=== PATIENT | female | born 1985 | race African-American/Black ===

== ENCOUNTER 2021-05-31 08:00 | Inpatient (IN) | payer OTHER ==
[2021-05-31] MEDS ORDERED: CITRIC ACID/SODIUM CITRATE 30 ML UNIT-DOSE CUP PO ONE (09:18)
[2021-05-31] MEDS ORDERED: ELECTROLYTE-148 SOLN 1,000 ML IV SCH (09:30)
[2021-05-31 09:41] VITALS: BMI 29.2
[2021-05-31] MEDS ORDERED: ONDANSETRON 4 MG/2 ML VIAL ONE (10:03)
[2021-05-31] MEDS ORDERED: OXYTOCIN 10 UNITS/ML VIAL ONE ×3 (10:05→11:26)
[2021-05-31] MEDS ORDERED: morphine SULFATE (PF) 1 MG/2 ML SYRINGE ONE (10:06)
[2021-05-31] MEDS ORDERED: ceFAZolin SODIUM 1 GM VIAL ONE (10:06)
[2021-05-31] MEDS ORDERED: PHENYLEPHRINE HCL 10 MG/1 ML SINGLE DOSE VIAL ONE (10:07)
[2021-05-31] MEDS ORDERED: METHYLERGONOVINE MALEATE 0.2 MG/1 ML AMP IM PRN (10:24)
[2021-05-31] MEDS ORDERED: OXYTOCIN 20 UNITS in 0.9% NS 20 UNIT/1,000 ML INFUS.BAG IV SCH (10:30)
[2021-05-31] MEDS ORDERED: TRANEXAMIC ACID 1000 MG/10 ML VIAL ONE (10:33)
[2021-05-31 11:42] LABS: CORD BASE EXCESS -4.1 mmol/L (0-2); CORD HCO3 23.3 mmHg (20-29); CORD PCO2 51.3 mmHg (30-78); CORD pH 7.276 (7.14-7.44)
[2021-05-31 11:52] LABS: CORD pH 7.316 (7.14-7.44)
[2021-05-31 11:55] LABS: CORD BASE EXCESS -4.3 mmol/L (0-2); CORD HCO3 21.4 mmHg (20-29); CORD PCO2 41.6 mmHg (30-78); CORD pH 7.33 (7.14-7.44)
[2021-05-31] MEDS ORDERED: ONDANSETRON 4 MG/2 ML VIAL IVPUSH PRN (12:25)
[2021-05-31] MEDS ORDERED: morphine SULFATE/PF 1 MG/2 ML (2cc Syringe - QUVA) EP ONE (12:26)
[2021-05-31] MEDS ORDERED: LACTATED RINGERS SOLUTION 1,000 ML IV SCH (12:30)
[2021-05-31] MEDS ORDERED: OXYTOCIN 20 UNITS in 0.9% NS 20 UNIT/1,000 ML INFUS.BAG IV ONE (14:10)
[2021-05-31] MEDS: LABETALOL HCL 200 MG TABLET (FP) PO SCH (22:20)
[2021-05-31] MEDS ORDERED: oxyCODONE HCL 5 MG TABLET PO PRN ×2 (22:24)
[2021-06-01] MEDS: ACETAMINOPHEN 325 MG TABLET (FP) PO PRN ×2 (05:50→21:03)
[2021-06-01 08:57] LABS: BASO % 0.2 % (0-2.0); EOS % 0.5 % (0-4.5); HEMATOCRIT 29.8 % (32.4-45.2); HEMOGLOBIN 10.1 GM/dL (10.7-15.3); LYMPH % 14.3 % (8-40); MCH 29.7 pg (25.7-33.7); MEAN CELL VOLUME 87.6 fl (80-96); MEAN PLT VOLUME 8.7 fl (7.5-11.1); PLATELET COUNT 187 10^3/uL (134-434); RDW 14.4 % (11.6-15.6); WHITE BLOOD COUNT 11.3 K/mm3 (4.0-10.0)
[2021-06-01] MEDS: ENOXAPARIN NA (PORCINE) 40 MG/0.4 ML DISP.SYRIN SQ SCH (09:19)
[2021-06-01] MEDS: LABETALOL HCL 200 MG TABLET (FP) PO SCH ×2 (09:19→21:03)
[2021-06-01] MEDS ORDERED: BISACODYL 10 MG SUPP.RECT RC PRN (10:24)
[2021-06-01] MEDS: SIMETHICONE 80 MG TAB.CHEW (FP) PO PRN ×2 (14:04→21:02)
[2021-06-01] MEDS: IBUPROFEN 600 MG TABLET (FP) PO PRN (21:03)
[2021-06-02] MEDS: LABETALOL HCL 200 MG TABLET (FP) PO SCH ×2 (10:59→21:47)
[2021-06-02] MEDS: ENOXAPARIN NA (PORCINE) 40 MG/0.4 ML DISP.SYRIN SQ SCH (10:59)
[2021-06-02] MEDS: IBUPROFEN 600 MG TABLET (FP) PO PRN (13:15)
[2021-06-02] MEDS: SIMETHICONE 80 MG TAB.CHEW (FP) PO PRN (13:15)
[2021-06-03 07:13] LABS: BASO % 0.4 % (0-2.0); EOS % 0.7 % (0-4.5); HEMATOCRIT 29.8 % (32.4-45.2); LYMPH % 12.3 % (8-40); MCH 29.5 pg (25.7-33.7); MCHC 33.6 g/dl (32.0-36.0); MEAN CELL VOLUME 87.9 fl (80-96); MEAN PLT VOLUME 8.1 fl (7.5-11.1); MONO % 6.6 % (3.8-10.2); PLATELET COUNT 237 10^3/uL (134-434); RBC 3.39 M/mm3 (3.60-5.2); RDW 14.3 % (11.6-15.6); WHITE BLOOD COUNT 11.1 K/mm3 (4.0-10.0)
[2021-06-03 08:47] LABS: ANISOCYTOSIS 0; HELMET CELLS 0; HOWELL-JOLLY BODIES 0; MACROCYTOSIS 0; OVALOCYTE 0; PLATELET ESTIMATE NORMAL; ROULEAU 0; SICKELED CELLS 0; TARGET CELLS 0; TEAR DROP CELLS 0; TOXIC GRANULATION 0
[2021-06-03] MEDS: LABETALOL HCL 200 MG TABLET (FP) PO SCH ×2 (09:36→21:41)
[2021-06-03] MEDS: ENOXAPARIN NA (PORCINE) 40 MG/0.4 ML DISP.SYRIN SQ SCH (09:36)
[2021-06-03] MEDS: IBUPROFEN 600 MG TABLET (FP) PO PRN (11:47)
[2021-06-03] MEDS: SIMETHICONE 80 MG TAB.CHEW (FP) PO PRN (11:48)
[2021-06-04] MEDS: ENOXAPARIN NA (PORCINE) 40 MG/0.4 ML DISP.SYRIN SQ SCH (09:19)
[2021-06-04] MEDS: LABETALOL HCL 200 MG TABLET (FP) PO SCH (09:19)
[2021-06-04] MEDS: SIMETHICONE 80 MG TAB.CHEW (FP) PO PRN (09:30)
[2021-06-04] MEDS: IBUPROFEN 600 MG TABLET (FP) PO PRN (12:47)
[2021-06-04] MEDS: ACETAMINOPHEN 325 MG TABLET (FP) PO PRN (12:48)
[2021-06-04 16:05] VITALS: BP 137/85; PULSE 73; TEMP 98.2
== END 2021-06-04 18:00 | disposition home or self-care (01) | DRG 540 ==
LOC: JLDR 08:20 → J3W 14:20
PROVIDERS: ADMIT Obstetrics & Gynecology; ATTEND Obstetrics & Gynecology
PROC: 10D00Z1 Extraction of Products of Conception, Low, Open Approach (ICD-10-PCS; principal; 2021-05-31)
PROC: 3E0334Z Introduction of Serum, Toxoid and Vaccine into Peripheral Vein, Percutaneous Approach (ICD-10-PCS; 2021-05-31)
DX: O30.043 Twin pregnancy, dichorionic/diamniotic, third trimester (principal); O34.211 Maternal care for low transverse scar from previous cesarean delivery; O60.14X2 Preterm labor third trimester with preterm delivery third trimester, fetus 2; N85.8 Other specified noninflammatory disorders of uterus; O10.92 Unspecified pre-existing hypertension complicating childbirth; Z29.13 Encounter for prophylactic Rho(D) immune globulin; O99.02 Anemia complicating childbirth; Z3A.36 36 weeks gestation of pregnancy; Z37.2 Twins, both liveborn
CPT/HCPCS: 36415; 36600; 82803; 85025; 85461; 86999; 87340